=== PATIENT | female | born 1990 | race African-American/Black ===

== ENCOUNTER 2022-10-21 12:55 | Emergency (ER) | payer MEDICAID, OTHER ==
[~2022-10-21] VITALS: Ht 170.2 cm; Wt 61.0 kg
[2022-10-21 13:03] VITALS: BP 119/73
== END 2022-10-21 16:59 | disposition home or self-care (01) ==
LOC: ER 14:10
DX: S90.31XA Contusion of right foot, initial encounter (principal); V49.59XA Passenger injured in collision with other motor vehicles in traffic accident, initial encounter; Y93.89 Activity, other specified; Y92.89 Other specified places as the place of occurrence of the external cause; Y99.8 Other external cause status
CPT/HCPCS: 73620; 99283